=== PATIENT | female | born 1960 | race Hispanic/Latino ===

== ENCOUNTER 2018-12-04 13:59 | Outpatient (CLI) | payer MEDICAID ==
--- NOTE | 2018-12-04 15:39 | Mammography Report ---
Augmented bilateral screening mammogram: Standard imaging over the implants as well as displacement views were obtained. Intact saline implants are present. There is a generally fatty breast pattern bilaterally. In the lateral left breast there is a dense clustering of somewhat chunky but pleomorphic calcifications. There appears to be some associated soft tissue density. No other findings noted. This patient's prior exam has been deleted from our files due to age. CAD used. Impression: Indeterminate left calcifications. Recommendation: Magnification views of the calcifications. If this patient has more recent outside images for comparison please notify us since that may alter the course of her evaluation. BI-RADS CATEGORY: 0 = Needs additional imaging evaluation ACR BI-RADS MAMMOGRAPHIC CODES: 0 = Needs additional imaging evaluation; 1 = Negative; 2 = Benign; 3 = Probably benign; 4 = Suspicious; 5 = Malignant; 6 = Known biopsy-proven malignancy COMMENT: 1. Dense breast tissue, i.e., adenosis, fibrocystic changes, etc., may obscure an underlying neoplasm. 2. Approximately 10% of cancers are not detected with mammography. 3. A negative mammography report should not delay biopsy if a clinically suspicious mass is present.
== END 2018-12-04 14:00 | disposition home or self-care (01) ==
LOC: SPVWC 13:59
PROVIDERS: ATTEND Family Medicine
DX: Z12.31 Encounter for screening mammogram for malignant neoplasm of breast (principal); I10 Essential (primary) hypertension; Z90.710 Acquired absence of both cervix and uterus
CPT/HCPCS: 77067